=== PATIENT | male | born 1980 | race Caucasian/White ===

== ENCOUNTER 2024-12-07 21:06 | Emergency (ER) | payer OTHER, SELFPAY ==
[2024-12-07 22:30] VITALS: BP 106/72
[2024-12-07 22:51] LABS: Hematocrit 41.5 % (39.0-52.0); Hemoglobin 15.2 g/dL (13.0-18.0); Mean Corp Hgb Conc. 36.6 g/dL (33.0-37.0); Mean Corpuscular Volume 84.3 fL (80.0-94.0); Nucleated Red Blood Cells % 0 % (-); Platelet Count 232 10^3/uL (130-400); Red Cell Dist. Width 11.3 % (11.5-14.5)
[2024-12-07 22:55] VITALS: BP 110/80
[2024-12-07 23:13] LABS: ALT (SGPT) 31 U/L (0-50); AST (SGOT) 24 U/L (17-59); Albumin 4.8 g/dl (3.5-5.0); Alkaline Phosphatase 61 U/L (38-126); Blood Urea Nitrogen 18 mg/dl (9-20); Calcium 9.3 mg/dl (8.4-10.2); Carbon Dioxide 26 mmol/L (22-30); Chloride 104 mmol/L (98-107); Glucose 127 mg/dl (70-99); Potassium 3.5 mmol/L (3.5-5.1); Sodium 139 mmol/L (135-145); Total Protein 7.4 g/dl (6.3-8.2); eGFR > 60.00
--- NOTE | 2024-12-07 23:52 | ED.GENMED ---
History of Present Illness
General
Chief Complaint: Dizziness
Source: patient and spouse
Time Seen by Provider: 12/07/24 23:20
History of Present Illness
History of Present Illness:
This patient is a 44-year-old male presents the emergency department with complaints of a 'spinning' sensation that started approximately 5:15 PM while he was at work. He says that he then became very anxious described as 'melted down', associated
with repeated episodes of nausea and vomiting. He denies chest pain, shortness of breath, neck pain, headache, change in vision, double vision, focal weakness, change in speech, photophobia, fever, or other complaints. Patient has had several
episodes of the same thing in the past and has an extensive workup with both ENT and neurology. He was diagnosed with migraines, but did not have his medication with him to take today. Patient notes that his ears have felt a little funny for the
last week or so described as hearing a 'echo so described as 'tin can'. He denies recent URI symptoms. Patient states that the sense of spinning is worse if he moves his head in any direction. He is laying on the bed on his left side which is
comfortable for him.
Past History
Past History
ED Past Medical History: GERD, Psychiatric (anxiety) and Other (Migraines)
ED Past Surgical History: None
Social History
Tobacco: Non-smoker
Alcohol: Occasional
Drug: None
Personal:
Living: with family
Employment: Employed
Phy Exam
Physical Exam
Physical Exam:
GENERAL: Alert , in no apparent distress
EYE: pupils equal and reactive, no nystagmus, no photophobia, EOMI
NECK: Supple, no significant adenopathy.
ENT: o/p clr, mmm.
CARDIAC: Regular rate and rhythm .
LUNGS: Clear breath sounds bilaterally, no acute respiratory distress, no wheezes/rales/rhonchi
ABDOMEN: Soft, without focal tenderness, no r/g, no cvat
NEUROLOGICAL: Alert and oriented, no focal neuro deficits
SKIN: Warm and dry, skin intact.
MUSCULOSKELETAL: No edema, well perfused.
PSYCH: Normal and appropriate interaction.
Course
Orders/Labs/Results
Orders:
Orders
12/07/24 21:11
ECG [Electrocardiogram (*1)] Urgent
Reason for Study: Vertigo / Dizzy
12/07/24 21:12
EKG- Treatment ONCE
12/07/24 22:42
CMP [Comprehensive Metabolic Panel] Urgent
Complete Blood Count/With Diff Urgent
12/07/24 23:51
Lorazepam [Ativan] 1 mg IV NOW STA
Ondansetron Injectable [Zofran] 4 mg IV NOW STA
12/08/24 01:08
Meclizine [Antivert] 25 mg PO NOW STA
12/08/24 02:16
Ondansetron Injectable [Zofran] 4 mg IV NOW STA
Abnormal Lab Results
12/07/24
22:42
WBC 12.3 H 10^3/uL
(4.8-10.8)
RDW 11.3 L %
(11.5-14.5)
Abs Immat Gran (auto) 0.1 H 10^3/uL
(0-0.05)
Absolute Neuts (auto) 10.5 H 10^3/uL
(1.4-6.5)
Absolute Lymphs (auto) 1.1 L 10^3/uL
(1.2-3.4)
Immature Gran % 0.6 H %
(0-0.5)
Neutrophils % 85.6 H %
(42.2-75.2)
Lymphocytes % 8.8 L %
(20.5-51.1)
Glucose 127 H mg/dl
(70-99)
12/07/24 22:42
12/07/24 22:42
Vital Signs
Initial and Last Documented VS:
Initial Vital Signs
Temp Pulse Resp Pulse Ox
98.2 F 69 20 99
12/07/24 21:09 12/07/24 21:09 12/07/24 21:09 12/07/24 21:09
Last Documented Vital Signs
Temp Pulse Resp BP Pulse Ox
98.2 F 78 18 110/80 98
12/07/24 21:09 12/07/24 22:55 12/07/24 22:55 12/07/24 22:55 12/07/24 23:54
*Pulse Oximetry
SaO2: 98
Oxygen Mode of Delivery: Room air
Patient hypoxic: no
*Critical Care Note
Total Time (30-74mins, 75-104mins- exclusive of procedures): Not Applicable
Update Note
Update Note:
Patient presents to the Emergency Department with ____dizziness, nausea, vomiting
Number and Complexity of Problems Addressed at the Encounter
� Chronic conditions affecting care:
� Acute Exacerbation and/or Progression of Chronic Illness:
� Differential Diagnosis includes: But not limited to vestibular migraine, BPPV, M�ni�re's, TIA/stroke, etc. etc.
Amount and/or Complexity of Data to be Reviewed and Analyzed
� I performed an independent evaluation of and my interpretation is:
EKG:
CT:
Xrays:
Laboratory Studies: Generally unremarkable, nonspecific leukocytosis most likely related to vomiting
Other:
� Review of other/old records reveals:
� Clinical information was obtained by an independent historian: Shani� who is at bedside and was with him when symptoms developed
� Prescriptions/Medications Considered but not given:
� Further testing considered but not performed:
Risk of Complications and/or Morbidity or Mortality of Patient Management
� Social determinants of health affecting care:
� Discussion with other providers (PCP, Hospitalists, Consultants, etc):
� Escalation of care including admission/observation vs risk of discharge considered: Low suspicion for central process. No nystagmus noted specifically no rotary or vertical nystagmus, no focal neurological findings, cranial
nerves intact, [id number] normal, etc. Symptoms are very consistent with prior episodes in the past, has been diagnosed with vestibular migraines and did not have meds with him to take as he was at a work function when this began. Status post
meds here, patient remained stable and feels much better, would like to go home. We will assess his gait.
216Am Pt walked well here, again performed nl f to n, no focal neuro findings. Has residual n, requesting antinausea med and d/c. D/w pt import of f/u and reasons to rted, jabierfran ordered.
ED Attending Note
-
Portions of this chart may have been created with voice recognition software.� Occasional wrong word or��sound alike� substitutions may have occurred due to the inherent limitations of voice recognition software.
Discharge Plan
Departure
Patient Disposition: Home (Routine Discharge)
Date of Disposition: 12/08/24
Time of Disposition: 02:16
Patient with high blood pressure during this ER visit?: No
Condition: Good
Discharge Problem:
Vertigo
Instructions: Vertigo (a Type of Dizziness) (DC)
Prescriptions:
No Action
pantoprazole 40 MG tablet,delayed release (DR/EC)
40 mg PO DAILY Qty: 14 0RF
Referrals:
Mable Millan MD [Family Provider, Internal Medicine]
Activity Restrictions/Additional Instructions:
PLEASE FOLLOW-UP WITH YOUR NEUROLOGIST THIS WEEK. IF YOU DEVELOP INCREASING OR NEW DIZZINESS, FEVER, CHANGE IN VISION/DOUBLE VISION, NUMBNESS, CHANGE IN SPEECH, DIFFICULTY WALKING, WEAKNESS OF AN ARM OR LEG, NAUSEA OR VOMITING, OR OTHER WORRISOME
SIGNS, PLEASE RETURN TO THE ER IMMEDIATELY!
Interventions
Interventions:
*Risk Screen - Suicide Last Done: 12/07/24 22:00
*General Assessment Last Done: 12/07/24 21:09
*Neglect/Abuse Screening Last Done: 12/07/24 22:00
*ED- Fall Risk Assessment Last Done: 12/07/24 22:00
*ED COVID-19 Vaccine History Last Done: 12/07/24 22:00
*ED Influenza Vaccine History Last Done: 12/07/24 22:00
ED- Neurological Assessment Last Done: 12/07/24 22:00
Discharge Date and Time
Print Language: MAURITANIAN
[2024-12-08] VITALS: BP 111/72
[2024-12-08] MEDS: ATIVAN 1 MG IV
[2024-12-08] MEDS: ANTIVERT 25 MG PO (01:11)
[2024-12-08 02:00] VITALS: BP 106/75
--- NOTE | 2024-12-08 02:19 | ED.GENMED ---
History of Present Illness
General
Chief Complaint: Dizziness
Time Seen by Provider: 12/07/24 23:20
Past History
Past History
ED Past Medical History: GERD, Psychiatric (anxiety) and Other (Migraines)
ED Past Surgical History: None
Social History
Tobacco: Non-smoker
Alcohol: Occasional
Drug: None
Personal:
Living: with family
Employment: Employed
Course
Orders/Labs/Results
Orders:
Orders
12/07/24 21:11
ECG [Electrocardiogram (*1)] Urgent
Reason for Study: Vertigo / Dizzy
12/07/24 21:12
EKG- Treatment ONCE
12/07/24 22:42
CMP [Comprehensive Metabolic Panel] Urgent
Complete Blood Count/With Diff Urgent
12/07/24 23:51
Lorazepam [Ativan] 1 mg IV NOW STA
Ondansetron Injectable [Zofran] 4 mg IV NOW STA
12/08/24 01:08
Meclizine [Antivert] 25 mg PO NOW STA
12/08/24 02:16
Ondansetron Injectable [Zofran] 4 mg IV NOW STA
Abnormal Lab Results
12/07/24
22:42
WBC 12.3 H 10^3/uL
(4.8-10.8)
RDW 11.3 L %
(11.5-14.5)
Abs Immat Gran (auto) 0.1 H 10^3/uL
(0-0.05)
Absolute Neuts (auto) 10.5 H 10^3/uL
(1.4-6.5)
Absolute Lymphs (auto) 1.1 L 10^3/uL
(1.2-3.4)
Immature Gran % 0.6 H %
(0-0.5)
Neutrophils % 85.6 H %
(42.2-75.2)
Lymphocytes % 8.8 L %
(20.5-51.1)
Glucose 127 H mg/dl
(70-99)
12/07/24 22:42
12/07/24 22:42
Vital Signs
Initial and Last Documented VS:
Initial Vital Signs
Temp Pulse Resp Pulse Ox
98.2 F 69 20 99
12/07/24 21:09 12/07/24 21:09 12/07/24 21:09 12/07/24 21:09
Last Documented Vital Signs
Temp Pulse Resp BP Pulse Ox
98.2 F 78 18 110/80 98
12/07/24 21:09 12/07/24 22:55 12/07/24 22:55 12/07/24 22:55 12/07/24 23:54
*Pulse Oximetry
SaO2: 98
Oxygen Mode of Delivery: Room air
ED Attending Note
-
Portions of this chart may have been created with voice recognition software.� Occasional wrong word or��sound alike� substitutions may have occurred due to the inherent limitations of voice recognition software.
Discharge Plan
Departure
Patient Disposition: Home (Routine Discharge)
Date of Disposition: 12/08/24
Time of Disposition: 02:16
Patient with high blood pressure during this ER visit?: No
Condition: Good
Discharge Problem:
Vertigo
Instructions: Vertigo (a Type of Dizziness) (DC)
Prescriptions:
No Action
pantoprazole 40 MG tablet,delayed release (DR/EC)
40 mg PO DAILY Qty: 14 0RF
Referrals:
Mable Millan MD [Family Provider, Internal Medicine]
Activity Restrictions/Additional Instructions:
PLEASE FOLLOW-UP WITH YOUR NEUROLOGIST THIS WEEK. IF YOU DEVELOP INCREASING OR NEW DIZZINESS, FEVER, CHANGE IN VISION/DOUBLE VISION, NUMBNESS, CHANGE IN SPEECH, DIFFICULTY WALKING, WEAKNESS OF AN ARM OR LEG, NAUSEA OR VOMITING, OR OTHER WORRISOME
SIGNS, PLEASE RETURN TO THE ER IMMEDIATELY!
Interventions
Interventions:
*Risk Screen - Suicide Last Done: 12/07/24 22:00
*General Assessment Last Done: 12/07/24 21:09
*Neglect/Abuse Screening Last Done: 12/07/24 22:00
*ED- Fall Risk Assessment Last Done: 12/07/24 22:00
*ED COVID-19 Vaccine History Last Done: 12/07/24 22:00
*ED Influenza Vaccine History Last Done: 12/07/24 22:00
ED- Neurological Assessment Last Done: 12/07/24 22:00
Discharge Date and Time
Print Language: PALAUAN
[2024-12-08] MEDS: ZOFRAN 4 MG IV ×2 (02:22)
== END 2024-12-08 02:50 | disposition home or self-care (01) ==
LOC: EMR 21:06
PROVIDERS: EMERGENCY PHYSICIAN Emergency Medicine; FAMILY PHYSICIAN Internal Medicine
DX: R42 Dizziness and giddiness (principal); K21.9 Gastro-esophageal reflux disease without esophagitis; F41.9 Anxiety disorder, unspecified
CPT/HCPCS: 99283; 96374; 96375; 96376; 80053; 85025; 93005